=== PATIENT | male | born 1955 | race Caucasian/White ===

== ENCOUNTER 2016-11-28 07:32 | Day surgery (SDC) | payer OTHER ==
--- NOTE | 2016-11-21 13:53 | HISTORY AND PHYSICAL E ---
History and Physical NAME: GOLDEN ORTEGA : 1955 AGE: 61Y ADMITTED: 11/28/2016 ROOM: SUBJECTIVE: Patient has had multiple colonoscopies. I did colonoscopy in 2004. Primary is Dr. Otilio Cárdenas. His first colonoscopy was done on 09/06/2005. Another colonoscopy done 2014 showing polyps. CONCLUSIONS: 1. Patient does have history of sessile polyps, injected and resected. 2. The patient does have history of adenoma polyps. REVIEW OF SYSTEMS: CARDIAC: Negative. RESPIRATORY: Shortness of breath. FAMILY HISTORY: Father with accident. Mom is alive. PHYSICAL EXAMINATION: VITAL SIGNS: Blood pressure 130/80. Pulse 80. Respirations 20. Temp is 98. HEAD, EYES, EARS, NOSE AND THROAT: Normal. NECK: Supple. LUNGS: Clear. ABDOMEN: Soft. NEUROLOGIC: Negative. MEDICATIONS: Aspirin. Vitamins. Singulair. PLAN: Colon screening. History of polyps. Admit 11/28. ALLERGIES: SHELLFISH. DICTATING PHYSICIAN: DESTINY QUIROZ M.D. [id number] PHY#: [id number] ID: [id number] JOB#: [id number] ACCT: [id number] cc:DESTINY QUIROZ M.D., ROBERT M.D. >
[~2016-11-28 07:32] MED LIST: EPINEPHRINE INJ 1 MG/10 ML DISP.SYRIN ONE; FENTANYL CITRATE INJ/PF 100 MCG/2 ML AMPUL ONE; FLUMAZENIL INJ 0.5 MG/5 ML VIAL IV ONE; GLUCAGON,HUMAN RECOMB 1 MG INJ ONE; GLYCOPYRROLATE INJ 0.4 MG/2 ML VIAL ONE; LIDOCAINE 2% JELLY 30 ML TUBE ONE; MIDAZOLAM 2 MG/2 ML INJ ONE; NALOXONE HCL INJ/PF 0.4 MG/1 ML SDV ONE; ONDANSETRON HCL INJ/PF 4 MG/2 ML SDV ONE; PROMETHAZINE HCL INJ 25 MG/1 ML VIAL ONE
[2016-11-28] MEDS: MIDAZOLAM 2 MG/2 ML INJ ONE ×2 (08:13→08:17)
[2016-11-28 09:42] VITALS: BP 113/76
--- NOTE | 2016-11-28 12:25 | DISCHARGE SUMMARY E ---
Discharge Summary NAME: GOLDEN ORTEGA : 1955 AGE: 61Y ADMITTED: 11/28/2016 DISCHARGED: 11/28/2016 SUMMARY: The patient, 61 years old, has a remote history of polyps in 2004. Today's screening colonoscopy shows sigmoid and descending diverticulosis and 2 sessile polyps in the transverse polyp, both injected and resected with no difficulties. The right colon was slightly coated with stool. I did not see any polyps. DISCHARGE PLAN: 1. Soft diet. 2. Hold aspirin and nonsteroidals. 3. Full liquid diet today and soft low residue for 3 days. 4. Awaiting biopsy results. 5. Consideration of follow-up colonoscopy in 1 year. 6. Follow-up office visit in the next few days. FINAL DIAGNOSES: 1. Diverticulosis, sigmoid and descending colon. 2. Two polyps in transverse colon resected. DICTATING PHYSICIAN: DESTINY QUIROZ M.D. [id number] PHY#: [id number] ID: [id number] JOB#: [id number] ACCT: [id number] cc:DESTINY QUIROZ M.D., ROBERT M.D. >
--- NOTE | 2016-11-28 12:30 | OPERATIVE REPORT E ---
Operative Report NAME: GOLDEN ORTEGA : 1955 AGE: 61Y DATE OF SURGERY: 11/28/2016 ROOM: PREOPERATIVE DIAGNOSES: 1. COLON SCREENING. 2. REMOTE HISTORY OF COLON POLYP. POSTOPERATIVE DIAGNOSES: 1. DIVERTICULOSIS SIGMOID DESCENDING COLON, MILD. 2. TWO POLYPS IN THE TRANSVERSE COLON, ONE PROXIMAL TRANSVERSE COLON 0.5 CM AND ONE 3 MM DISTAL TRANSVERSE COLON. 3. CECUM WAS VISUALIZED. THERE WAS MODERATE AMOUNT OF STOOL IN THE CECUM ASCENDING COLON. OPERATION: Colonoscopy. SURGEON: DESTINY QUIROZ M.D. ANESTHESIA: Versed 3, fentanyl 100. PROCEDURE: Rectal exam; normal. Sigmoid descending colon; diverticulosis. Transverse colon; 2 sessile polyps injected, resected no difficulties. No bleeding. No perforation. Ascending colon; coated with liquid brown stool. Cecum; coated with liquid brown stool. DESCRIPTION: Rectum normal. Sigmoid descending colon; diverticulosis. Transverse colon; inject resect x2 distal and proximal. Ascending colon shows no polyps. CONCLUSIONS: Transverse colon polyps. DISCHARGE PLAN: Full liquids. Hold aspirin and nonsteroidal 5 days. Full liquid today and then soft, low-residue diet. Awaiting biopsy results. Because the 2 polyps and inadequate prep in the right colon, the patient needs to have followup colonoscopy after 1 year. DICTATING PHYSICIAN: DESTINY QUIROZ M.D. [id number] PHY#: [id number] ID: [id number] JOB#: [id number] ACCT: [id number] cc:DESTINY QUIROZ M.D., ROBERT M.D. >
== END 2016-11-28 09:38 | disposition home or self-care (01) ==
LOC: END 07:32
PROVIDERS: ATTEND Specialist
PROC: 0DBL8ZX Excision of Transverse Colon, Via Natural or Artificial Opening Endoscopic, Diagnostic (ICD-10-PCS; principal; 2016-11-28 08:00)
PROC: 3E0H8GC Introduction of Other Therapeutic Substance into Lower GI, Via Natural or Artificial Opening Endoscopic (ICD-10-PCS; 2016-11-28 08:00)
DX: Z12.11 Encounter for screening for malignant neoplasm of colon (principal); K57.30 Diverticulosis of large intestine without perforation or abscess without bleeding; D12.3 Benign neoplasm of transverse colon; R06.02 Shortness of breath; Z79.82 Long term (current) use of aspirin; Z79.899 Other long term (current) drug therapy
CPT/HCPCS: 45385; 45381; 88305 ×2; J2250; J3010; J1610; J2405; J0171; J2310; J2550; J3490

== ENCOUNTER → 2018-08-25 | Outpatient (CLI) | payer OTHER ==
--- NOTE | 2018-08-25 16:16 | RADIOLOGY REPORT (SQ) ---
EXAM DESCRIPTION: BONE SURVEY COMPLETE COMPLETED DATE/TIME: 08/25/2018 3:32 pm REASON FOR STUDY: MONOCLONAL GAMMOPATHY D47.2 MONOCLONAL GAMMOPATHY COMPARISON: Two-view chest 09/05/2007 TECHNIQUE: Images of the axial and proximal appendicular skeleton are obtained, along with lateral s kull and frontal chest films. LIMITATIONS: None. FINDINGS: AP CHEST: Lungs free of focal infiltrates. No cardiomegaly or hilar enlargement. No pleu ral effusions or pneumothorax. Old healed right rib fractures. LATERAL SKULL: No worrisome bone lesions. AP BOTH HUMERI: No worrisome bone lesions. TWO-VIEW LUMBAR SPINE: No worrisome bone lesions. Advanced lower lumbar degenerative disc changes TWO-VIEW THORACIC SPINE: No worrisome bone lesions. Diffuse mild to moderate thoracic degenerative d isc changes TWO-VIEW CERVICAL SPINE: No worrisome bone lesions. Advanced diffuse cervical degenerative disc arnold ges AP PELVIS: No worrisome bone lesions. AP BOTH FEMURS: No worrisome bone lesions. Bilateral total knee replacements OTHER: No other significant finding. IMPRESSION: NO WORRISOME BONE LESIONS. TECHNICAL DOCUMENTATION: JOB ID: [id number] [employer]- All Rights Reserved Reading location - IP/workstation name: [email or web address]
== END ==
LOC: RAD 15:23
PROVIDERS: ATTEND Internal Medicine
DX: D47.2 Monoclonal gammopathy (principal)
CPT/HCPCS: 77075

== ENCOUNTER → 2018-09-07 | Outpatient (CLI) | payer OTHER ==
--- NOTE | 2018-09-08 10:16 | RADIOLOGY REPORT (SQ) ---
EXAM DESCRIPTION: PET CT WHOLE BODY COMPLETED DATE/TIME: 09/07/2018 11:21 pm REASON FOR STUDY: MULTIPLE MYELOMA C90.00 MULTIPLE MYELOMA NOT HAVING ACHIEVED REMISSION COMPARISON: Skeletal survey 08/25/2018 RADIONUCLIDE AND DOSE: 8.3 mCi F18 FDG The route of agent administration: Intravenous FASTING BLOOD SUGAR: 92 mg/dl CONTRAST TYPE AND DOSE: No CT contrast given. TECHNIQUE: Blood glucose level was verified. Above dose of FDG was injected intravenously. 2-D seg mented attenuation correction images were obtained through the entire body. Noncontrast CT images we re obtained for attenuation correction and fusion with emission images. CT images were performed wit hout oral or intravenous contrast and are not sensitive for parenchymal lesions. A series of overlap ping emission PET images were obtained. Images reviewed and manipulated at independent work station by the radiologist. Images stored on PACS. LIMITATIONS: None. FINDINGS: HEAD AND NECK: No areas of abnormal metabolic activity in the soft tissues of the head and neck. CHEST: No areas of abnormal metabolic activity in the chest. ABDOMEN AND PELVIS: No areas of abnormal metabolic activity in the abdomen or pelvis. Expected physi ologic activity is present in the genitourinary system and bowel. LOWER EXTREMITIES: No areas of abnormal metabolic activity in the soft tissues of the lower extremiti es. BONES: Focal increased uptake in the leftward half of the T8 vertebral body is present correlating wi th a 10 mm lytic lesion. There is abnormal increased uptake in spotty distribution throughout the lumbar spine, S1 level and b ilateral posterior iliac crests, ranging in SUV from 3.1 to 4.2, worrisome for diffuse myeloma involv ement ADDITIONAL CT FINDINGS: No additional significant findings on the noncontrast CT images. OTHER: No other significant findings. IMPRESSION: Diffuse skeletal uptake worrisome for myeloma involvement TECHNICAL DOCUMENTATION: JOB ID: [id number]- All Rights Reserved Reading location - IP/workstation name: [email or web address]
== END ==
LOC: RAD 08-31 16:18
PROVIDERS: ATTEND Internal Medicine
DX: C90.00 Multiple myeloma not having achieved remission (principal)
CPT/HCPCS: 78816; A9552

== ENCOUNTER 2018-10-20 05:57 | Day surgery (SDC) | payer OTHER ==
[~2018-10-20 05:57] MED LIST changes: +CEFAZOLIN 1 GM/D5W RTU 1 GM/50 ML RTUPB IV PRN; +DIAZEPAM 5 MG TABLET PO PRN; -EPINEPHRINE INJ 1 MG/10 ML DISP.SYRIN ONE; -FENTANYL CITRATE INJ/PF 100 MCG/2 ML AMPUL ONE; -FLUMAZENIL INJ 0.5 MG/5 ML VIAL IV ONE; -GLUCAGON,HUMAN RECOMB 1 MG INJ ONE; -GLYCOPYRROLATE INJ 0.4 MG/2 ML VIAL ONE; -LIDOCAINE 2% JELLY 30 ML TUBE ONE; -MIDAZOLAM 2 MG/2 ML INJ ONE; -NALOXONE HCL INJ/PF 0.4 MG/1 ML SDV ONE; -ONDANSETRON HCL INJ/PF 4 MG/2 ML SDV ONE; +OXYCODONE-ACETAMINOPHEN 5-325 MG TABLET PO PRN; -PROMETHAZINE HCL INJ 25 MG/1 ML VIAL ONE
[2018-10-20 06:32] LABS: HEMATOCRIT 38.1 % (37.9-51.0); HEMOGLOBIN 13.2 g/dL (13.5-17.0); MEAN CORPUSCULAR HGB CONC 34.8 g/dL (32.0-36.0); MEAN CORPUSCULAR VOLUME 86 fl (80-97); PLATELET COUNT 269 10^3/uL (150-450); RED BLOOD COUNT 4.42 10^6/uL (4.35-5.55); RED CELL DISTRIBUTION WIDTH 14.2 % (11.5-14.0); WHITE BLOOD COUNT 7.6 10^3/uL (4.0-10.5)
[2018-10-20 06:53] LABS: ANION GAP 7 (5-19); BLOOD UREA NITROGEN 16 mg/dL (7-20); CALCIUM 9.1 mg/dL (8.4-10.2); CARBON DIOXIDE 27 mmol/L (22-30); CHLORIDE 105 mmol/L (98-107); GLUCOSE 95 mg/dL (75-110); POTASSIUM 3.7 mmol/L (3.6-5.0); SODIUM 139.2 mmol/L (137-145)
[2018-10-20] MEDS ORDERED: DIAZEPAM 5 MG TABLET ONE (06:53)
[2018-10-20] MEDS ORDERED: OXYCODONE-ACETAMINOPHEN 5-325 MG TABLET ONE (06:53)
[2018-10-20] MEDS ORDERED: CEFAZOLIN 1 GM/D5W RTU 1 GM/50 ML RTUPB IV ONE (06:56)
--- NOTE | 2018-10-20 07:21 | RADIOLOGY REPORT (SQ) ---
EXAM DESCRIPTION: XR CHEST 1 VIEW COMPLETED DATE/TME: 10/20/2018 00:00 CLINICAL HISTORY: 63 years Male, port placement COMPARISON: None. NUMBER OF VIEWS/TECHNIQUE: 1/AP FINDINGS: Adequate lung volume, clear parenchyma, normal cardiac silhouette, and intact bony thorax. IMPRESSION: No acute cardiopulmonary findings.
[2018-10-20] MEDS ORDERED: MIDAZOLAM 2 MG/2 ML INJ ONE (07:30)
[2018-10-20] MEDS ORDERED: FENTANYL CITRATE INJ/PF 100 MCG/2 ML AMPUL ONE (07:30)
[2018-10-20] MEDS ORDERED: BACITRACIN INJ 50,000 UNIT VIAL ONE (08:03)
[2018-10-20] MEDS ORDERED: LIDOCAINE 0.5% INJ-PF (5 MG/ML) 50 ML SDV ONE ×2 (08:03→08:43)
--- NOTE | 2018-10-20 09:07 | Discharge Summary ---
Discharge Summary (SDC) - Discharge Final Diagnosis: #1 multiple myeloma. 2. COPD. Date of Surgery: 10/20/18 Discharge Date: 10/20/18 Condition: Fair Treatment or Instructions: Discharge home [after recovery per ASU criteria]. Diet , as tolerated, when fully awake advance as tolerated. Activities within moderation encouraged. Follow up in my office by appointment in about [1 week]. Call for appointment. Leave wounds [covered], [keep clean and dry, until office visit in 1 week]. Hold of on school/work [until evaluation in office]. Meds per med rec. Percocet. May shower [in 48 hrs], [try to keep operated area as dry as possible]. Prescriptions: Oxycodone HCl/Acetaminophen [Percocet 5-325 mg Tablet] 1 tab PO ASDIR PRN #15 tab PRN Reason: Referrals: MARLYN CRUZ MD [Primary Care Provider] - Discharge Diet: As Tolerated Respiratory Treatments at Home: Deep Breathing/Coughing Discharge Activity: Activity As Tolerated Report the Following to Your Physician Immediately: Shortness of Breath, Unusual Bleeding
--- NOTE | 2018-10-20 09:10 | Operative Report ---
Operative Report DATE OF SURGERY: 10/20/18 PREOPERATIVE DIAGNOSIS: #1 multiple myeloma. 2. COPD. POSTOPERATIVE DIAGNOSIS: #1 multiple myeloma. 2. COPD. OPERATION: 1. Ultrasound evaluation of the right internal jugular vein. 2. Insertion of Port-A-Cath via real-time access in the right internal jugular vein. SURGEON: ARABELLA DUNCAN [employer]IT OPERATOR OIL WELL: None. ANESTHESIA: Moderate Sedation TISSUE REMOVED OR ALTERED: Not applicable. COMPLICATIONS: None. ESTIMATED BLOOD LOSS: 5 mL. INTRAOPERATIVE FINDINGS: Of a satisfactory right internal jugular vein to support Port-A-Cath. About 1.2 cm in diameter. Satisfactory access, satisfactory appearing position of the catheter. Easy egress of blood and ingress of heparinized solution through the single port. Postprocedure x-ray was satisfactory with no suggestion of complication. PROCEDURE: After obtaining informed consent, the patient was taken to the Bus Inspector and positioned supine. The [right] neck and chest were prepared with chlorhexidine and draped out with sterile linen. After the " universal timeout", in which it was verified that the patient continued to receive antibiotic, the procedure commenced. A steriley sheathed ultrasound probe was used to evaluate the [right] internal jugular vein. Local anesthesia was infiltrated adjacent to the probe. Access into the [right] internal jugular vein was obtained using a micropuncture needle, followed by micropuncture wire and then a micropuncture catheter. This was followed by introduction of a 0.035 guidewire the tip of which was placed down into the inferior vena cava . The port sites was marked , locally anesthetized and incision made. Dissection now proceeded to the deep subcutaneous subcutaneous tissues so that a pocket for the port was made. Meticulous hemostasis was secured and the catheter was tunneled between the 2 incisions. Proximally, the catheter was now positioned using a peel-away sheath. Distally the catheter was tailored to an appropriate length and then mated to the port using the contained fixating device. The port was now placed in the pocket and the catheter optimally positioned. The port was accessed with a Bell needle and an angiogram done under digital subtraction. The findings as dictated. With adequate and satisfactory positioning, both lumens of the chamber were irrigated with heparinized solution. The wounds were now closed using interrupted 3-0 PDS to the subcutaneous tissues and a continuous subcuticular suture of 4-0 Monocryl to the skin. These are reinforced with Steri-Strips over benzoin and then dressings applied. Time: 0.1 minute. Dose: 4.20 Shalini boone. Contrast: None. Copies of the dictated operative report for Dr. Arabella aBins MD.
--- NOTE | 2018-10-20 09:57 | RADIOLOGY REPORT (SQ) ---
EXAM DESCRIPTION: PORTACATH INSERTION; GUIDANCE FLUOROSCOPIC COMPLETED DATE/TIME: 10/20/2018 9:15 am REASON FOR STUDY: MULT MYL; MULTI MYLO C90.00 MULTIPLE MYELOMA NOT HAVING ACHIEVED REMISSION COMPARISON: AP chest 10/20/2018 FLUOROSCOPY TIME: 0.1 minutes 7 series of digital fluoroscopic images saved to PACS. TECHNIQUE: Intra-operative images acquired during surgical procedure to evaluate progress. NUMBER OF IMAGES: 7 series of digital fluoroscopic images LIMITATIONS: None. FINDINGS: Intra procedural imaging and fluoro during placement of a right-sided permanent central li ne with the tip in the superior vena cava. Please see the operative report for further details IMPRESSION: Intra procedural imaging and fluoro COMMENT: Quality ID [id number]: Final reports for procedures using fluoroscopy that document radiation exp osure indices, or exposure time and number of fluorographic images (if radiation exposure indices are not available) Please consult full operative report of the attending physician for description of the procedure. TECHNICAL DOCUMENTATION: JOB ID: [id number] [employer]- All Rights Reserved Reading location - IP/workstation name: [email or web address]
--- NOTE | 2018-10-20 09:57 | RADIOLOGY REPORT (SQ) ---
EXAM DESCRIPTION: PORTACATH INSERTION; GUIDANCE FLUOROSCOPIC COMPLETED DATE/TIME: 10/20/2018 9:15 am REASON FOR STUDY: MULT MYL; MULTI MYLO C90.00 MULTIPLE MYELOMA NOT HAVING ACHIEVED REMISSION COMPARISON: AP chest 10/20/2018 FLUOROSCOPY TIME: 0.1 minutes 7 series of digital fluoroscopic images saved to PACS. TECHNIQUE: Intra-operative images acquired during surgical procedure to evaluate progress. NUMBER OF IMAGES: 7 series of digital fluoroscopic images LIMITATIONS: None. FINDINGS: Intra procedural imaging and fluoro during placement of a right-sided permanent central li ne with the tip in the superior vena cava. Please see the operative report for further details IMPRESSION: Intra procedural imaging and fluoro COMMENT: Quality ID [id number]: Final reports for procedures using fluoroscopy that document radiation exp osure indices, or exposure time and number of fluorographic images (if radiation exposure indices are not available) Please consult full operative report of the attending physician for description of the procedure. TECHNICAL DOCUMENTATION: JOB ID: [id number] [employer]- All Rights Reserved Reading location - IP/workstation name: [email or web address]
[2018-10-20 11:14] VITALS: BP 146/92
== END 2018-10-20 10:50 | disposition home or self-care (01) ==
LOC: CCL 05:57
PROVIDERS: ATTEND Surgery
DX: C90.00 Multiple myeloma not having achieved remission (principal); E85.9 Amyloidosis, unspecified; G89.29 Other chronic pain; I10 Essential (primary) hypertension; D64.9 Anemia, unspecified; J44.9 Chronic obstructive pulmonary disease, unspecified; M12.9 Arthropathy, unspecified; F32.9 Major depressive disorder, single episode, unspecified; Z79.51 Long term (current) use of inhaled steroids; Z79.899 Other long term (current) drug therapy; Z79.82 Long term (current) use of aspirin
CPT/HCPCS: 36415; 85027; 80048; 36561; 76937; 77001; 71045; C1752; C1788; Q9967; J2250; J3490 ×2; J0690; J3010; J1644

== ENCOUNTER → 2019-08-04 | Outpatient (CLI) | payer OTHER | LOC: LAB 10:39 | PROVIDERS: ATTEND Internal Medicine | DX: C90.00 Multiple myeloma not having achieved remission (principal) | CPT/HCPCS: 36415; 86850; 86900; 86901 ==